=== PATIENT | male | born 1955 | race Two or more races ===

== ENCOUNTER → 2020-08-04 | Outpatient (CLI) | payer BC ==
[2020-08-04 14:55] LABS: Basophils # (auto) 0.1 10 ^3/uL (0-0.2); Eosinophils # (auto) 0.4 10 ^3/uL (0-0.8); Nucleated Red Blood Cells % 0.1 %
[2020-08-04 14:57] LABS: Basophils % (auto) 1.4 % (0.0-2.0); Eosinophils % (auto) 5.2 % (0.0-7.0); Hematocrit 39.2 % (41.0-53.0); Lymphocytes # (auto) 2.6 10 ^3/uL (0.4-5.4); Mean Corpuscular Hemoglobin 34.7 pg (28.0-32.0); Mean Corpuscular Hgb Conc. 35.6 g/dL (32.0-36.0); Mean Corpuscular Volume 97.3 fL (80.0-100.0); Monocytes # (auto) 0.6 10 ^3/uL (0-1.3); Monocytes % (auto) 9.1 % (0.0-12.0); Neutrophils # (auto) 3.2 10 ^3/uL (1.6-8.6); Neutrophils % (auto) 46.3 % (37.0-80.0); Platelet Count (auto) 277 10^3/uL (140-450); Red Blood Cells 4.03 10^6/uL (4.5-5.90); Red Cell Distribution Width 12.8 % (11.8-14.3)
[2020-08-04 15:05] LABS: Urine Amorphous Crystal FEW /hpf (None Seen); Urine Bacteria NONE SEEN /hpf (None Seen); Urine Blood Negative /uL (Negative); Urine Mucus FEW (None Seen); Urine Specific Gravity 1.029 (1.001-1.035); Urine WBC 1 /hpf (0 - 3)
[2020-08-04 15:14] LABS: Albumin 3.6 g/dL (3.4-5.0); Calcium 8.8 mg/dL (8.5-10.1); INR 1.05 (0.9-1.15); Partial Thromboplastin Time 27.5 sec (23.0-31.2); Potassium 4.1 mmol/L (3.5-5.1)
[2020-08-04 15:18] LABS: BUN/Creatinine Ratio 26.9; Bilirubin, Total 1.1 mg/dL (0.2-1.0); Total Protein 7.3 g/dL (6.4-8.2)
== END | disposition home or self-care (01) ==
LOC: LAB 14:18
PROVIDERS: ATTEND Orthopaedic Surgery Adult Reconstructive Orthopaedic Surgery
DX: Z01.812 Encounter for preprocedural laboratory examination (principal); Z20.822 Contact with and (suspected) exposure to COVID-19
CPT/HCPCS: 36415; 80053; 81001; 85025; 85610; 85730; U0003

== ENCOUNTER 2023-10-29 03:02 | Inpatient (IN) | payer OTHER ==
[~2023-10-29] VITALS: Ht 170.2 cm; Wt 83.3 kg
[2023-10-29 05:50] VITALS: BP 155/84; PULSE 61; RESP 18; TEMP 97.9
[2023-10-29 06:38] VITALS: BP 155/84; PULSE 61; RESP 16; RESP 18; TEMP 97.9; O2SAT 100
[2023-10-29] MEDS ORDERED: NITROGLYCERIN 0.4 MG SL TAB SL PRN (06:45)
[2023-10-29] MEDS ORDERED: ACETAMINOPHEN 325 MG TAB PO PRN (06:45)
[2023-10-29] MEDS ORDERED: MELATONIN 5 MG TAB PO PRN (06:45)
[2023-10-29] MEDS ORDERED: ONDANSETRON HCL 4 MG/2 ML VIAL IV PRN (06:45)
[2023-10-29] MEDS ORDERED: MORPHINE SULFATE INJ 2 MG/ml SYRG IV PRN (06:45)
[2023-10-29] MEDS ORDERED: DEXTROSE (50%) 50ML SYRG IV PRN (07:00)
[2023-10-29] MEDS ORDERED: [UNRECOGNIZED DRUG - CODE] PO (07:11)
[2023-10-29] MEDS ORDERED: METF-372 PO (07:11)
[2023-10-29] MEDS ORDERED: MET25T PO (07:11)
[2023-10-29] MEDS ORDERED: TRAM50TA2 PO (07:11)
[2023-10-29] MEDS ORDERED: LISI20TA56 PO (07:11)
[2023-10-29 09:00] VITALS: BP 136/79; PULSE 61; RESP 16; TEMP 98.1; O2SAT 99
[2023-10-29] MEDS: PANTOPRAZOLE 40 MG/10 ML VIAL INJ IV SCH (10:00)
[2023-10-29] MEDS: ASPirin 81 mg TAB PO SCH (10:00)
[2023-10-29] MEDS: ENOXAPARIN SOD 40 MG/0.4 ML SYRINGE SC SCH (10:01)
[2023-10-29 10:47] LABS: Basophils # (auto) 0.1 10 ^3/uL (0-0.2); Basophils % (auto) 1.9 % (0.0-2.0); Eosinophils # (auto) 0.3 10 ^3/uL (0-0.8); Eosinophils % (auto) 5.1 % (0.0-7.0); Hematocrit 38.7 % (41.0-53.0); Hemoglobin 13.2 g/dL (13.5-17.5); Lymphocytes # (auto) 1.6 10 ^3/uL (0.4-5.4); Lymphocytes % (auto) 30.9 % (10.0-50.0); Mean Corpuscular Hemoglobin 34.1 pg (28.0-32.0); Mean Corpuscular Hgb Conc. 34.2 g/dL (32.0-36.0); Mean Corpuscular Volume 99.6 fL (80.0-100.0); Monocytes # (auto) 0.5 10 ^3/uL (0-1.3); Monocytes % (auto) 8.5 % (0.0-12.0); Neutrophils # (auto) 2.9 10 ^3/uL (1.6-8.6); Neutrophils % (auto) 53.6 % (37.0-80.0); Platelet Count (auto) 249 10^3/uL (140-450); Red Blood Cells 3.88 10^6/uL (4.5-5.90); Red Cell Distribution Width 13.4 % (11.8-14.3); White Blood Cell 5.3 10^3/uL (4.4-10.8)
[2023-10-29 11:03] LABS: Alanine Aminotransferase 14 U/L (7-40); Albumin 4.1 g/dL (3.2-4.8); Alkaline Phosphatase 68 U/L (46-116); Anion Gap 4 (5-15); Aspartate Aminotransferase 17 U/L (13-40); BUN/Creatinine Ratio 23.2 (10.0-20.0); Blood Urea Nitrogen 19 mg/dL (9-23); Calcium 8.9 mg/dL (8.7-10.4); Carbon Dioxide 29 mmol/L (20-30); Chloride 104 mmol/L (98-107); Glucose 216 mg/dL (74-106); Sodium 137 mmol/L (136-145); Total Protein 6.5 g/dL (5.7-8.2)
[2023-10-29 11:11] LABS: Triglycerides 156 mg/dL (< 150)
[2023-10-29 11:12] LABS: LDL Cholesterol 103 mg/dL (< 100)
[2023-10-29 11:13] LABS: Cholesterol 187 mg/dL (< 200); HDL Cholesterol 63 mg/dL (40-59)
[2023-10-29] MEDS: ACCU-CHEK COMFORT CURVE STRIP VI SCH (11:44)
[2023-10-29] MEDS: InsuLIN REG 1unit/0.01ml Soln (100units/ml) SC SCH (11:50)
[2023-10-29 12:36] VITALS: BP 156/76; PULSE 59; RESP 16; TEMP 98; O2SAT 100
[2023-10-29 16:06] VITALS: BP 148/79; PULSE 59; RESP 17; TEMP 98.1; O2SAT 99
[2023-10-29 20:00] VITALS: PULSE 63
[2023-10-29] MEDS: HYDROcodone-ACET 5/325MG TAB PO PRN (20:09)
[2023-10-29] MEDS: ATORVASTATIN 20 MG TAB PO SCH (22:42)
[2023-10-30] VITALS (13 sets, daily range): BP systolic 90–168; BP diastolic 56–86; PULSE 53–99; RESP 12–20; TEMP 97.8–98.7; O2SAT 96–100
[2023-10-30] MEDS: HEPARIN IN NS 1000Units/500mL 0 ML ONE (13:30)
[2023-10-30] MEDS: IODIXANOL 320MG/ML 100ML BTL IV ONE ×2 (13:30→15:04)
[2023-10-30] MEDS: LIDOCAINE 2%HCL (LOCAL ANESTH.) INJ 20ML MDV ONE ×2 (13:50→15:07)
[2023-10-30] MEDS: HEPARIN SODIUM (PORCINE) 5000 UNITS/ML 1ML VIAL ONE ×2 (13:51→15:06)
[2023-10-30] MEDS: VERAPAMIL 2.5MG/ML INJ 2ML VIAL IV ONE ×2 (13:51→15:07)
[2023-10-30] MEDS: ANGIOMAX 250 MG VIAL IV ONE (15:06)
[2023-10-30] MEDS: fentaNYL CITRATE 100 MCG/2 ML VL ONE (15:07)
[2023-10-30] MEDS: SODIUM CHL 0.9% 50 ML ONE (15:07)
[2023-10-30] MEDS: MIDAZOLAM HCL 2MG/2ML 2ml VIAL (1mg/ml) ONE (15:07)
[2023-10-30] MEDS: TICAGRELOR 90 MG TAB ONE (16:18)
[2023-10-30] MEDS: hydrALAZINE HCL 20 MG/ML VL ONE (16:18)
[2023-10-30 19:29] LABS: INR 1.19 (0.9-1.15); Prothrombin Time 12.5 sec (9.3-11.8)
[2023-10-30] MEDS: TICAGRELOR 90 MG TAB PO SCH (22:00)
[2023-10-31] MEDS: TICAGRELOR 90 MG TAB PO SCH (00:16)
[2023-10-31 05:00] VITALS: BP 146/82; PULSE 57; RESP 18; TEMP 98; O2SAT 99
[2023-10-31 08:00] VITALS: PULSE 58; PULSE 60; RESP 17; O2SAT 99
[2023-10-31 08:40] VITALS: BP 142/80; PULSE 58; RESP 17; TEMP 98.7; O2SAT 99
[2023-10-31 09:01] LABS: Hepatitis B Surface Antigen Negative (Negative)
[2023-10-31] MEDS: LISINOPRIL 20 MG TAB PO SCH (10:17)
[2023-10-31] MEDS: ISOSORBIDE MONONITRATE ER 60 MG TAB PO ONE (11:43)
[2023-10-31 11:48] LABS: Hepatitis C Antibody Negative (Negative)
[2023-10-31 13:00] VITALS: BP 144/83; PULSE 59; RESP 17; TEMP 98.3; O2SAT 98
[2023-10-31] MEDS ORDERED: LISINOPRIL 20 MG TAB PO SCH (13:30)
[2023-10-31] MEDS ORDERED: ISO60SRT PO (15:28)
[2023-10-31] MEDS ORDERED: MET25T PO (15:28)
[2023-10-31] MEDS ORDERED: ASPI-325 PO (15:28)
[2023-10-31] MEDS ORDERED: ATOR20TA50 PO (15:28)
[2023-10-31] MEDS ORDERED: TICA90TA PO (15:28)
[2023-10-31] MEDS ORDERED: LISI20TA56 PO (15:28)
[2023-10-31 17:00] VITALS: BP 114/64; PULSE 74; RESP 17; TEMP 98; O2SAT 100
[2023-11-01] MEDS ORDERED: ISOSORBIDE MONONITRATE ER 60 MG TAB PO SCH (10:00)
[2023-11-01] MEDS ORDERED: LOSARTAN POTASSIUM 50 MG TAB PO SCH (10:00)
== END 2023-10-31 20:30 | disposition home or self-care (01) | DRG 322 ==
LOC: EAST 05:25 → TELE-EAST 10-30 08:55
PROVIDERS: ADMIT Nurse Practitioner Family; ATTEND Hospitalist
PROC: 027035Z Dilation of Coronary Artery, One Artery with Two Drug-eluting Intraluminal Devices, Percutaneous Approach (ICD-10-PCS; principal; 2023-10-30)
PROC: B211YZZ Fluoroscopy of Multiple Coronary Arteries using Other Contrast (ICD-10-PCS; 2023-10-30)
PROC: B215YZZ Fluoroscopy of Left Heart using Other Contrast (ICD-10-PCS; 2023-10-30)
PROC: 4A023N7 Measurement of Cardiac Sampling and Pressure, Left Heart, Percutaneous Approach (ICD-10-PCS; 2023-10-30)
PROC: B240ZZ3 Ultrasonography of Single Coronary Artery, Intravascular (ICD-10-PCS; 2023-10-30)
DX: I25.119 Atherosclerotic heart disease of native coronary artery with unspecified angina pectoris (principal); E11.9 Type 2 diabetes mellitus without complications; I10 Essential (primary) hypertension; E78.5 Hyperlipidemia, unspecified; Z87.891 Personal history of nicotine dependence; Z79.84 Long term (current) use of oral hypoglycemic drugs
CPT/HCPCS: 36415; 71045; 80053; 80061; 82962; 84484; 85025; 85610; 85730; 86803; 87340; 92943; 93306; 93458; 99152; C1874; C1887; G0378; J1815; J2250; J2470; Q9967

== ENCOUNTER 2023-11-21 14:48 | Emergency (ER) | payer OTHER ==
[~2023-11-21] VITALS: Ht 170.2 cm; Wt 81.8 kg
[~2023-11-21 14:48] MED LIST: ASPI-325 PO; ATOR20TA50 PO; ISO60SRT PO; LISI20TA56 PO; MET25T PO; METF-372 PO; TICA90TA PO; TRAM50TA2 PO; [UNRECOGNIZED DRUG - CODE] PO
[2023-11-21 15:38] LABS: Basophils # (auto) 0.1 10 ^3/uL (0-0.2); Basophils % (auto) 1.7 % (0.0-2.0); Eosinophils # (auto) 0.5 10 ^3/uL (0-0.8); Eosinophils % (auto) 5.2 % (0.0-7.0); Hematocrit 41.4 % (41.0-53.0); Hemoglobin 14.2 g/dL (13.5-17.5); Lymphocytes # (auto) 2.3 10 ^3/uL (0.4-5.4); Lymphocytes % (auto) 26.1 % (10.0-50.0); Mean Corpuscular Hemoglobin 33.2 pg (28.0-32.0); Mean Corpuscular Hgb Conc. 34.4 g/dL (32.0-36.0); Mean Corpuscular Volume 96.6 fL (80.0-100.0); Monocytes # (auto) 0.9 10 ^3/uL (0-1.3); Monocytes % (auto) 10.3 % (0.0-12.0); Neutrophils % (auto) 56.7 % (37.0-80.0); Platelet Count (auto) 353 10^3/uL (140-450); Red Blood Cells 4.29 10^6/uL (4.5-5.90); Red Cell Distribution Width 12.8 % (11.8-14.3); White Blood Cell 8.8 10^3/uL (4.4-10.8)
[2023-11-21 15:58] LABS: Alanine Aminotransferase 34 U/L (7-40); Albumin 4.5 g/dL (3.2-4.8); Alkaline Phosphatase 86 U/L (46-116); Anion Gap 8 (5-15); Aspartate Aminotransferase 22 U/L (13-40); BUN/Creatinine Ratio 19.1 (10.0-20.0); Blood Urea Nitrogen 22 mg/dL (9-23); Calcium 10.1 mg/dL (8.7-10.4); Carbon Dioxide 27 mmol/L (20-30); Chloride 104 mmol/L (98-107); Glucose 135 mg/dL (74-106); Potassium 4.5 mmol/L (3.5-5.1); Sodium 139 mmol/L (136-145)
[2023-11-21 15:59] LABS: Bilirubin, Total 1.6 mg/dL (0.2-1.0); Total Protein 7.1 g/dL (5.7-8.2)
[2023-11-21 18:03] VITALS: BP 94/65; PULSE 68; RESP 16; TEMP 98.4; O2SAT 98
== END 2023-11-21 20:38 | disposition home or self-care (01) ==
LOC: ER 14:48
DX: R07.89 Other chest pain (principal); E11.9 Type 2 diabetes mellitus without complications; Z88.0 Allergy status to penicillin
CPT/HCPCS: 36415; 71046; 80053; 84484; 85025; 93005

== ENCOUNTER 2023-12-04 08:04 | Day surgery (SDC) | payer OTHER ==
[~2023-12-04] VITALS: Ht 170.2 cm; Wt 79.4 kg
[2023-12-04] MEDS ORDERED: IODIXANOL 320MG/ML 100ML BTL IV ONE (08:05)
[2023-12-04] MEDS ORDERED: MIDAZOLAM HCL 2MG/2ML 2ml VIAL (1mg/ml) ONE (10:19)
[2023-12-04] MEDS ORDERED: fentaNYL CITRATE 100 MCG/2 ML VL ONE (10:19)
[2023-12-04] MEDS ORDERED: VERAPAMIL 2.5MG/ML INJ 2ML VIAL IV ONE (10:19)
[2023-12-04] MEDS ORDERED: LIDOCAINE 2%HCL (LOCAL ANESTH.) INJ 20ML MDV ONE (10:19)
[2023-12-04] MEDS ORDERED: HEPARIN SODIUM (PORCINE) 5000 UNITS/ML 1ML VIAL ONE (10:20)
[2023-12-04] MEDS ORDERED: SODIUM CHL 0.9% 50 ML ONE (10:29)
[2023-12-04] MEDS ORDERED: ANGIOMAX 250 MG VIAL IV ONE (10:29)
[2023-12-04] MEDS ORDERED: CLOPIDOGREL BISULFATE 75 MG TAB ONE (10:57)
[2023-12-04] MEDS ORDERED: ASPirin 81 mg TAB ONE (10:57)
[2023-12-04] MEDS ORDERED: CLOP75TA28 PO (12:26)
== END 2023-12-04 13:24 | disposition home or self-care (01) ==
LOC: CATH 08:04
PROVIDERS: ATTEND Internal Medicine
DX: I25.118 Atherosclerotic heart disease of native coronary artery with other forms of angina pectoris (principal); E78.5 Hyperlipidemia, unspecified; Z79.82 Long term (current) use of aspirin; Z88.0 Allergy status to penicillin; Z79.01 Long term (current) use of anticoagulants; Z79.899 Other long term (current) drug therapy; Z87.891 Personal history of nicotine dependence; Z98.890 Other specified postprocedural states; Z95.5 Presence of coronary angioplasty implant and graft
CPT/HCPCS: 75580; 93458; C1769; C1874; C1887; C1894; C9600; J0583; J1644; J2250; J3010; J7030; Q9967; 99152; 99153

== ENCOUNTER 2023-12-10 11:52 | Emergency (ER) | payer OTHER ==
[~2023-12-10] VITALS: Ht 170.2 cm; Wt 82.7 kg
[~2023-12-10 11:52] MED LIST changes: +CLOP75TA28 PO; -TICA90TA PO
[2023-12-10 12:28] VITALS: PULSE 55; RESP 18; O2SAT 95
[2023-12-10] MEDS: fentaNYL CITRATE 100 MCG/2 ML VL IV ONE ×2 (12:54→15:55)
[2023-12-10 13:05] LABS: Basophils # (auto) 0.2 10 ^3/uL (0-0.2); Basophils % (auto) 2.2 % (0.0-2.0); Eosinophils # (auto) 0.3 10 ^3/uL (0-0.8); Eosinophils % (auto) 3.9 % (0.0-7.0); Hematocrit 35.3 % (41.0-53.0); Hemoglobin 12.6 g/dL (13.5-17.5); Lymphocytes # (auto) 2.1 10 ^3/uL (0.4-5.4); Lymphocytes % (auto) 26.7 % (10.0-50.0); Mean Corpuscular Hemoglobin 33.7 pg (28.0-32.0); Mean Corpuscular Hgb Conc. 35.8 g/dL (32.0-36.0); Mean Corpuscular Volume 94.3 fL (80.0-100.0); Monocytes # (auto) 0.7 10 ^3/uL (0-1.3); Monocytes % (auto) 8.8 % (0.0-12.0); Neutrophils # (auto) 4.5 10 ^3/uL (1.6-8.6); Neutrophils % (auto) 58.4 % (37.0-80.0); Platelet Count (auto) 246 10^3/uL (140-450); Red Blood Cells 3.74 10^6/uL (4.5-5.90); Red Cell Distribution Width 12.7 % (11.8-14.3); White Blood Cell 7.7 10^3/uL (4.4-10.8)
[2023-12-10 13:22] LABS: INR 1.09 (0.9-1.15); Prothrombin Time 11.5 sec (9.3-11.8)
[2023-12-10 13:23] LABS: Alanine Aminotransferase 20 U/L (7-40); Albumin 4.4 g/dL (3.2-4.8); Alkaline Phosphatase 86 U/L (46-116); Anion Gap 9 (5-15); Aspartate Aminotransferase 16 U/L (13-40); BUN/Creatinine Ratio 20.8 (10.0-20.0); Blood Urea Nitrogen 20 mg/dL (9-23); Calcium 9.8 mg/dL (8.7-10.4); Carbon Dioxide 22 mmol/L (20-30); Chloride 105 mmol/L (98-107); Glucose 203 mg/dL (74-106); Potassium 4.4 mmol/L (3.5-5.1); Sodium 136 mmol/L (136-145)
[2023-12-10 13:24] LABS: Bilirubin, Total 1.4 mg/dL (0.2-1.0); Total Protein 7.1 g/dL (5.7-8.2)
[2023-12-10] MEDS: MORPHINE SULFATE 4 MG/ML SYR/VIAL IV ONE (14:17)
[2023-12-10] MEDS: TETANUS-DIPTH-ACEL PERTUSSIS 0.5ML SYR Tdap IM ONE (14:19)
[2023-12-10] MEDS: ceFAZolin 2 GM/D5W50ml 50 ML IV ONE (14:39)
[2023-12-10 16:35] VITALS: BP 154/87; PULSE 64; RESP 18; TEMP 98.8; O2SAT 99
== END 2023-12-10 16:30 | disposition short-term general hospital (02) ==
LOC: ER 11:52
DX: S62.631B Displaced fracture of distal phalanx of left index finger, initial encounter for open fracture (principal); S62.633B Displaced fracture of distal phalanx of left middle finger, initial encounter for open fracture; S62.635B Displaced fracture of distal phalanx of left ring finger, initial encounter for open fracture; S62.637B Displaced fracture of distal phalanx of left little finger, initial encounter for open fracture; E11.9 Type 2 diabetes mellitus without complications; K21.9 Gastro-esophageal reflux disease without esophagitis; Z98.890 Other specified postprocedural states; Z88.0 Allergy status to penicillin; Z79.899 Other long term (current) drug therapy; Z86.2 Personal history of diseases of the blood and blood-forming organs and certain disorders involving the immune mechanism; W27.0XXA Contact with workbench tool, initial encounter; Y93.89 Activity, other specified; Y92.89 Other specified places as the place of occurrence of the external cause; Y99.8 Other external cause status
CPT/HCPCS: 36415; 73130; 80053; 84484; 85025; 85610; 85730; 86850; 86900; 86901; 90471; 90715; 96365; 96375; 96376; 99285; J0690; J2270; J3010